=== PATIENT | female | born 1995 | race Caucasian/White ===

== ENCOUNTER 2021-12-28 14:06 | Emergency (ER) | payer OTHER ==
[~2021-12-28] VITALS: Ht 177.8 cm; Wt 105.0 kg
[2021-12-28 14:35] VITALS: BP 135/90
[2021-12-28 15:15] LABS: BASOPHILS % 0.6 % (0.0-2.0); EOSINOPHILS % 1.3 % (0.0-5.0); HEMATOCRIT. 38.9 % (36.0-48.0); HEMOGLOBIN. 13.1 g/dL (12.0-16.0); LYMPHOCYTES % 21.3 % (20.0-50.0); MEAN CORPUSCULAR HEMOGLOBIN 30.7 pg (28.0-32.0); MEAN CORPUSCULAR VOLUME 91.1 fL (81.0-99.0); MEAN PLATELET VOLUME 7.3 fl (7.4-10.4); MONOCYTES % 5.8 % (2.0-8.0); PLATELET 379 x1000/uL (130-400); RED BLOOD CELL COUNT 4.27 mill/uL (4.2-5.4); RED CELL DISTRIBUTION WIDTH 14.7 % (11.6-14.6)
[2021-12-28 15:21] LABS: CLARITY URINE CLOUDY (CLEAR); COLOR URINE ORANGE (YELLOW); KETONES URINE TRACE (NEGATIVE); LEUKOCYTE ESTERASE URINE 1+ (NEGATIVE); NITRITE URINE NEGATIVE (NEGATIVE); OCCULT BLOOD URINE 3+ (NEGATIVE); PROTEIN URINE NEGATIVE (NEGATIVE); SPECIFIC GRAVITY URINE 1.018 (1.005-1.030); UROBILINOGEN URINE 0.2 E.U./dL (0.2-1.0)
[2021-12-28] MEDS ORDERED: NAPR275T96 MT (17:41)
== END 2021-12-28 18:17 | disposition home or self-care (01) ==
LOC: ER 14:06
DX: O03.9 Complete or unspecified spontaneous abortion without complication (principal); Z3A.01 Less than 8 weeks gestation of pregnancy; D64.9 Anemia, unspecified
CPT/HCPCS: 36415; 76801; 81003; 81025; 84702; 85025; 86900; 99284

== ENCOUNTER 2023-04-28 00:49 | Emergency (ER) | payer OTHER ==
[~2023-04-28] VITALS: Ht 177.8 cm; Wt 91.0 kg
[~2023-04-28 00:49] MED LIST: NAPR275T96 MT
[2023-04-28 00:54] VITALS: TEMP 97.9; O2SAT 98
[2023-04-28 01:45] VITALS: BP 130/85; PULSE 87; RESP 15
[2023-04-28] MEDS ORDERED: KETOROLAC 30MG/ML VIAL IM ONE (01:45)
[2023-04-28] MEDS ORDERED: NAPR-681 MT (03:12)
[2023-04-28 03:19] LABS: CLARITY URINE CLEAR (CLEAR); COLOR URINE YELLOW (YELLOW); GLUCOSE URINE NEGATIVE (NEGATIVE); KETONES URINE NEGATIVE (NEGATIVE); LEUKOCYTE ESTERASE URINE TRACE (NEGATIVE); NITRITE URINE NEGATIVE (NEGATIVE); OCCULT BLOOD URINE NEGATIVE (NEGATIVE); PROTEIN URINE TRACE (NEGATIVE); SPECIFIC GRAVITY URINE 1.029 (1.005-1.030)
[2023-04-28 03:21] LABS: BACTERIA URINE TRACE; RBC URINE 0-2 /hpf (0-2); SQUAMOUS EPITHELIAL CELL URINE FEW /lpf (RARE/1+)
[2023-04-30 04:09] LABS: CHLAMYDIA TRACHOMATIS NAA Negative (Negative); NEISSERIA GONORRHOEAE NAA Negative (Negative)
== END 2023-04-28 03:45 | disposition home or self-care (01) ==
LOC: ER 00:49
DX: N94.6 Dysmenorrhea, unspecified (principal); D64.9 Anemia, unspecified
CPT/HCPCS: 87491; 87591; 81003; 81025; 87210; 96372; 99283; J1885; Z7610

== ENCOUNTER 2024-01-07 18:22 | Emergency (ER) | payer MEDICAID, OTHER ==
[~2024-01-07] VITALS: Ht 177.8 cm; Wt 94.0 kg
[~2024-01-07 18:22] MED LIST changes: +NAPR-681 MT
[2024-01-07 18:37] VITALS: O2SAT 98
[2024-01-07] MEDS ORDERED: DEXAMETHASONE 0.5MG/5ML ORAL SYR PO ONE (19:00)
[2024-01-07] MEDS: KETOROLAC 60MG/2ML VIAL IM ONE (19:07)
[2024-01-07] MEDS: DEXAMETHASONE 10 MG/ML VIAL PO NR (19:42)
[2024-01-07] MEDS ORDERED: IBUP-2028 MT (20:40)
[2024-01-07 21:00] VITALS: BP 125/75; PULSE 79; RESP 18; TEMP 98.6
== END 2024-01-07 21:03 | disposition home or self-care (01) ==
LOC: ER 18:22
DX: J02.9 Acute pharyngitis, unspecified (principal); H92.02 Otalgia, left ear; D64.9 Anemia, unspecified
CPT/HCPCS: 99283; 81025; 87430; 87070; 96372; J1100; J1885

== ENCOUNTER 2025-03-21 15:48 | Emergency (ER) | payer SELFPAY ==
[~2025-03-21] VITALS: Ht 177.8 cm; Wt 95.0 kg
[~2025-03-21 15:48] MED LIST changes: +IBUP-2028 MT
[2025-03-21 15:51] VITALS: BP 128/73; TEMP 36.7; O2SAT 99
[2025-03-21 15:53] VITALS: PULSE 104; RESP 20; O2SAT 98
[2025-03-21 16:21] LABS: CLARITY URINE CLEAR (CLEAR); COLOR URINE DARK YELLOW (YELLOW); GLUCOSE URINE NEGATIVE (NEGATIVE); KETONES URINE TRACE (NEGATIVE); LEUKOCYTE ESTERASE URINE 1+ (NEGATIVE); NITRITE URINE NEGATIVE (NEGATIVE); OCCULT BLOOD URINE NEGATIVE (NEGATIVE); PH URINE 6.5 (4.5-8.0); PROTEIN URINE TRACE (NEGATIVE); SPECIFIC GRAVITY URINE 1.033 (1.005-1.030); UROBILINOGEN URINE 1.0 E.U./dL (0.2-1.0)
[2025-03-21 16:45] LABS: RBC URINE NONE SEEN /hpf (0-2)
[2025-03-21 16:46] LABS: BACTERIA URINE TRACE; SQUAMOUS EPITHELIAL CELL URINE 1+ /lpf (RARE/1+)
[2025-03-21 19:01] LABS: BASOPHILS % 1.3 % (0.0-2.0); EOSINOPHILS % 0.9 % (0.0-5.0); HEMATOCRIT. 40.3 % (36.0-48.0); HEMOGLOBIN. 13.3 g/dL (12.0-16.0); LYMPHOCYTES % 30.9 % (20.0-50.0); MEAN PLATELET VOLUME 7.1 fl (7.4-10.4); MONOCYTES % 6.6 % (2.0-8.0); NEUTROPHILS % 60.3 % (40.0-76.0); PLATELET 475 x1000/uL (130-400); RED BLOOD CELL COUNT 4.23 mill/uL (4.2-5.4); RED CELL DISTRIBUTION WIDTH 14.3 % (11.6-14.6)
[2025-03-21 19:16] LABS: CREATININE 0.8 mg/dL (0.6-1.0)
[2025-03-21 19:17] LABS: UREA NITROGEN BLOOD 10 mg/dL (9-23)
[2025-03-21 19:18] LABS: ASPARTATE AMINOTRANSFERASE 11 IU/L (<34)
[2025-03-21 19:19] LABS: BILIRUBIN TOTAL 1.0 mg/dL (0.1-1.0); PROTEIN TOTAL 7.1 g/dL (6.0-8.3)
[2025-03-21 19:32] LABS: B-HCG QUANTITATIVE < 1 mIU/mL (<6)
[2025-03-21] MEDS ORDERED: IBUP-2029 MT (20:02)
== END 2025-03-21 20:40 | disposition home or self-care (01) ==
LOC: ER 15:48
DX: R10.9 Unspecified abdominal pain (principal); R19.7 Diarrhea, unspecified; D64.9 Anemia, unspecified; Z32.02 Encounter for pregnancy test, result negative
CPT/HCPCS: 36415; 80053; 81003; 81025; 84702; 85025; 99283